=== PATIENT | male | born 1960 | race Caucasian/White ===

== ENCOUNTER 2017-03-21 13:57 | Emergency (ER) | payer OTHER ==
[2017-03-21 17:05] VITALS: BP 120/74
== END 2017-03-21 17:05 | disposition home or self-care (01) ==
LOC: ED 13:57
DX: S43.52XA Sprain of left acromioclavicular joint, initial encounter (principal); I10 Essential (primary) hypertension; M10.9 Gout, unspecified; E11.9 Type 2 diabetes mellitus without complications; S13.9XXA Sprain of joints and ligaments of unspecified parts of neck, initial encounter; V89.2XXA Person injured in unspecified motor-vehicle accident, traffic, initial encounter; Y93.89 Activity, other specified; Y92.89 Other specified places as the place of occurrence of the external cause; Y99.8 Other external cause status
CPT/HCPCS: J1170; J1885